=== PATIENT | male | born 1950 | race Caucasian/White ===

== ENCOUNTER 2022-01-02 16:45 | Inpatient (IN) | payer MEDICARE, OTHER ==
[2022-01-02 19:31] LABS: #Basophils 0.1 10x3/uL (0.0-0.2); #Eosinphils 0.2 10x3/uL (0.0-0.5); #Monocytes 0.4 10x3/uL (0.0-1.1); #Neutrophils 3.2 10x3/uL (1.5-8.4); %Basophils 1.1 % (0.0-2.0); %Lymphocytes 26.7 % (18.0-47.0); %Monocytes 8.1 % (0.0-10.0); %Neutrophils 60.9 % (40.0-75.0); Hemoglobin 13.7 g/dL (13.5-17.5); Mean Corpuscular HGB CONC 34.2 g/dL (32.0-36.0); Mean Corpuscular Volume 87.9 fl (81.2-95.1); Mean Platelet Volume 8.3 fl (7.4-10.4); Platelet Count 167 10x3/uL (150-450); RBC Distribution Width 12.9 % (11.5-14.5); Red Blood Cell (RBC) Count 4.56 10x6/uL (4.32-5.72); White Blood Cell (WBC) Count 5.3 10x3/uL (3.5-10.5)
[2022-01-02 19:34] LABS: Bilirubin Neg (Negative); Blood, Urine Negative (Negative); Clarity Clear (Clear); Glucose, Urine (Dipstick) Normal (Negative); Ketone, Urine 5 mg/dL (Negative); Leukocyte 25 (Negative); Nitrite Negative (Negative); Protein, Urine (Dipstick) 30 mg/dl (Neg-Trace); Specific Gravity, Urine 1.025 (1.002-1.036)
[2022-01-02 19:42] LABS: Bacteria/HPF None Seen HPF (None Seen); Mucous/LPF 1+ LPF (<2+); RBC/HPF 0-3 HPF (0-3); Squamous Epithelial 0-3 HPF (0-3)
[2022-01-02 19:45] LABS: ALT (SGPT) Less than 6 U/L (8-55); AST (SGOT) 11 U/L (5-34); Albumin 4.1 g/dL (3.4-4.8); Alkaline Phosphatase 62 U/L (40-110); Anion Gap 12 mmol/L (10-20); BUN (Urea Nitrogen) 18 mg/dL (8.4-25.7); Bilirubin, Total 0.9 mg/dL (0.2-1.2); Calc. Creatinine Clearance 0 mL/min (70-130); Calcium 8.9 mg/dL (7.8-10.44); Carbon Dioxide 28 mmol/L (23-31); Chloride 103 mmol/L (98-107); Globulin 2.1 g/dL (2.4-3.5); Glucose 101 mg/dL (83-110); Potassium 3.3 mmol/L (3.5-5.1); Protein, Total 6.2 g/dL (5.8-8.1); Sodium 140 mmol/L (136-145)
[2022-01-02] MEDS ORDERED: Ondansetron PF 4 MG/2 ML Vial IVP PRN (21:02)
[2022-01-02] MEDS ORDERED: Calcium Carbonate 500 MG ChewTAB PO PRN (21:02)
[2022-01-02] MEDS ORDERED: Senokot S 8.6-50 MG TAB PO PRN (21:02)
[2022-01-02] MEDS ORDERED: Guaifenesin DM 100-10/5 ML UDCUP PO PRN (21:02)
[2022-01-02] MEDS ORDERED: Potassium Chloride 20 MEQ TAB ONE (21:08)
[2022-01-02] MEDS ORDERED: Lactated Ringer's 1,000 ML IV SCH (21:15)
[2022-01-02 22:51] VITALS: BMI 30.7
[2022-01-02] MEDS ORDERED: Tamsulosin HCl 0.4 MG CAP PO SCH (23:00)
[2022-01-02] MEDS ORDERED: Potassium Chloride 20 MEQ TAB PO SCH (23:00)
[2022-01-02] MEDS: cefTRIAXone\\ROCEPHIN 1 GM in Sodium Chloride 0.9% 100 ML IVPB SCH (23:11)
[2022-01-03] MEDS ORDERED: Carbidopa/Levodopa 25-100 mg Tablet PO SCH (01:15)
[2022-01-03] MEDS: Acetaminophen 325 MG TAB PO PRN ×2 (03:38→23:03)
[2022-01-03 05:15] LABS: Anion Gap 14 mmol/L (10-20); BUN (Urea Nitrogen) 13 mg/dL (8.4-25.7); Calc. Creatinine Clearance 106 mL/min (70-130); Carbon Dioxide 28 mmol/L (23-31); Chloride 107 mmol/L (98-107); Glucose 135 mg/dL (83-110); Magnesium 1.7 mg/dL (1.6-2.6); Potassium 3.6 mmol/L (3.5-5.1); Sodium 145 mmol/L (136-145)
[2022-01-03] MEDS: Amlodipine 10 MG TAB PO SCH (08:21)
[2022-01-03] MEDS: Finasteride 5 MG TAB PO SCH (08:21)
[2022-01-03] MEDS: Carbidopa/Levodopa 25-100 mg Tablet PO SCH ×5 (08:21→23:17)
[2022-01-03] MEDS: Cholecalciferol (Vitamin D3) 400 UNITS TAB PO SCH (08:21)
[2022-01-03] MEDS: Amantadine HCl 100 mg Capsule PO SCH (08:21)
[2022-01-03] MEDS: Enoxaparin Sodium 40 MG/0.4 ML SYRINGE SC SCH (08:22)
[2022-01-03] MEDS: Polyethylene Glycol 3350 17 GM Packet PO SCH (08:22)
[2022-01-03] MEDS: Fluticasone Propionate Nasal Spray 16 gm Bottle NASAL SCH (08:22)
[2022-01-03] MEDS: Tamsulosin HCl 0.4 MG CAP PO SCH (20:00)
[2022-01-03] MEDS: Atorvastatin Calcium 20 MG TAB PO SCH (20:01)
[2022-01-03] MEDS: cefTRIAXone\\ROCEPHIN 1 GM in Sodium Chloride 0.9% 100 ML IVPB SCH (22:50)
[2022-01-03 23:03] LABS: SARS-CoV-2 PCR by NAA Not Detected (NotDetected)
[2022-01-03] MEDS: Melatonin 3 MG TAB PO PRN (23:03)
[2022-01-04] MEDS: Carbidopa/Levodopa 25-100 mg Tablet PO SCH ×5 (07:55→23:23)
[2022-01-04] MEDS: Finasteride 5 MG TAB PO SCH (07:55)
[2022-01-04] MEDS: Amantadine HCl 100 mg Capsule PO SCH (07:55)
[2022-01-04] MEDS: Enoxaparin Sodium 40 MG/0.4 ML SYRINGE SC SCH (07:55)
[2022-01-04] MEDS: Cholecalciferol (Vitamin D3) 400 UNITS TAB PO SCH (07:55)
[2022-01-04] MEDS: Fluticasone Propionate Nasal Spray 16 gm Bottle NASAL SCH (07:56)
[2022-01-04] MEDS: Amlodipine 10 MG TAB PO SCH (07:56)
[2022-01-04] MEDS: Polyethylene Glycol 3350 17 GM Packet PO SCH (07:56)
[2022-01-04] MEDS ORDERED: SODIUM CHLORIDE 0.9% IV SCH (10:30)
[2022-01-04] MEDS: Sodium Chloride 0.9% 1,000 ML IV SCH (16:37)
[2022-01-04] MEDS: Atorvastatin Calcium 20 MG TAB PO SCH (20:12)
[2022-01-04] MEDS: Tamsulosin HCl 0.4 MG CAP PO SCH (20:12)
[2022-01-04] MEDS: Acetaminophen 325 MG TAB PO PRN (20:16)
[2022-01-04] MEDS: cefTRIAXone\\ROCEPHIN 1 GM in Sodium Chloride 0.9% 100 ML IVPB SCH (23:23)
[2022-01-04] MEDS: Melatonin 3 MG TAB PO PRN (23:23)
[2022-01-05] MEDS: Sodium Chloride 0.9% 1,000 ML IV SCH ×2 (04:34→18:09)
[2022-01-05] MEDS: Carbidopa/Levodopa 25-100 mg Tablet PO SCH ×4 (08:05→21:05)
[2022-01-05] MEDS: Finasteride 5 MG TAB PO SCH (08:06)
[2022-01-05] MEDS: Cholecalciferol (Vitamin D3) 400 UNITS TAB PO SCH (08:06)
[2022-01-05] MEDS: Polyethylene Glycol 3350 17 GM Packet PO SCH (08:06)
[2022-01-05] MEDS: Enoxaparin Sodium 40 MG/0.4 ML SYRINGE SC SCH (08:06)
[2022-01-05] MEDS: Amlodipine 10 MG TAB PO SCH (08:06)
[2022-01-05] MEDS: Amantadine HCl 100 mg Capsule PO SCH (08:06)
[2022-01-05] MEDS: Fluticasone Propionate Nasal Spray 16 gm Bottle NASAL SCH (08:08)
[2022-01-05 08:16] LABS: #Basophils 0.1 10x3/uL (0.0-0.2); #Eosinphils 0.2 10x3/uL (0.0-0.5); #Monocytes 0.4 10x3/uL (0.0-1.1); #Neutrophils 2.5 10x3/uL (1.5-8.4); %Eosinophils 4.2 % (0.0-6.0); %Lymphocytes 32.7 % (18.0-47.0); %Neutrophils 52.9 % (40.0-75.0); Hemoglobin 13.4 g/dL (13.5-17.5); Mean Corpuscular HGB CONC 33.4 g/dL (32.0-36.0); Mean Corpuscular Hemoglobin 29.6 pg (27.0-33.0); Mean Corpuscular Volume 88.5 fl (81.2-95.1); Mean Platelet Volume 8.5 fl (7.4-10.4); Platelet Count 166 10x3/uL (150-450); RBC Distribution Width 12.7 % (11.5-14.5); Red Blood Cell (RBC) Count 4.53 10x6/uL (4.32-5.72); White Blood Cell (WBC) Count 4.8 10x3/uL (3.5-10.5)
[2022-01-05 08:29] LABS: Anion Gap 13 mmol/L (10-20); BUN (Urea Nitrogen) 11 mg/dL (8.4-25.7); Calc. Creatinine Clearance 120 mL/min (70-130); Calcium 8.9 mg/dL (7.8-10.44); Carbon Dioxide 27 mmol/L (23-31); Chloride 106 mmol/L (98-107); Glucose 97 mg/dL (83-110); Magnesium 1.6 mg/dL (1.6-2.6); Phosphorus 2.7 mg/dL (2.3-4.7); Sodium 143 mmol/L (136-145)
[2022-01-05] MEDS: Potassium Chloride 20 MEQ TAB PO SCH ×2 (12:39→14:18)
[2022-01-05] MEDS: Magnesium 2 GM/50 ML 2 GM in Premix Bag 1 BAG IVPB SCH ×2 (12:40→14:18)
[2022-01-05] MEDS: Atorvastatin Calcium 20 MG TAB PO SCH (21:05)
[2022-01-05] MEDS: Tamsulosin HCl 0.4 MG CAP PO SCH (21:05)
[2022-01-06] MEDS: Carbidopa/Levodopa 25-100 mg Tablet PO SCH ×5 (00:56→22:07)
[2022-01-06] MEDS: Acetaminophen 325 MG TAB PO PRN (01:33)
[2022-01-06 06:37] LABS: #Basophils 0.1 10x3/uL (0.0-0.2); #Eosinphils 0.2 10x3/uL (0.0-0.5); #Monocytes 0.5 10x3/uL (0.0-1.1); #Neutrophils 3.1 10x3/uL (1.5-8.4); %Basophils 1.1 % (0.0-2.0); %Eosinophils 4.1 % (0.0-6.0); %Lymphocytes 30.4 % (18.0-47.0); %Monocytes 8.3 % (0.0-10.0); %Neutrophils 55.7 % (40.0-75.0); Hemoglobin 13.5 g/dL (13.5-17.5); Mean Corpuscular HGB CONC 34.2 g/dL (32.0-36.0); Mean Corpuscular Hemoglobin 29.9 pg (27.0-33.0); Mean Corpuscular Volume 87.4 fl (81.2-95.1); Mean Platelet Volume 8.6 fl (7.4-10.4); Platelet Count 177 10x3/uL (150-450); RBC Distribution Width 12.8 % (11.5-14.5); Red Blood Cell (RBC) Count 4.52 10x6/uL (4.32-5.72); White Blood Cell (WBC) Count 5.6 10x3/uL (3.5-10.5)
[2022-01-06 06:52] LABS: Phosphorus 2.9 mg/dL (2.3-4.7)
[2022-01-06 06:55] LABS: Anion Gap 11 mmol/L (10-20); BUN (Urea Nitrogen) 15 mg/dL (8.4-25.7); Calc. Creatinine Clearance 115 mL/min (70-130); Carbon Dioxide 27 mmol/L (23-31); Chloride 107 mmol/L (98-107); Glucose 102 mg/dL (83-110); Magnesium 2.1 mg/dL (1.6-2.6); Potassium 3.5 mmol/L (3.5-5.1); Sodium 141 mmol/L (136-145)
[2022-01-06] MEDS: Enoxaparin Sodium 40 MG/0.4 ML SYRINGE SC SCH (08:27)
[2022-01-06] MEDS: Polyethylene Glycol 3350 17 GM Packet PO SCH (08:28)
[2022-01-06] MEDS: Fluticasone Propionate Nasal Spray 16 gm Bottle NASAL SCH (08:28)
[2022-01-06] MEDS: Amlodipine 10 MG TAB PO SCH (08:29)
[2022-01-06] MEDS: Cholecalciferol (Vitamin D3) 400 UNITS TAB PO SCH (08:29)
[2022-01-06] MEDS: Finasteride 5 MG TAB PO SCH (08:30)
[2022-01-06] MEDS ORDERED: Lisinopril 10 MG TAB PO SCH (09:00)
[2022-01-06] MEDS: Amantadine HCl 100 mg Capsule PO SCH (09:20)
[2022-01-06] MEDS: Atorvastatin Calcium 20 MG TAB PO SCH (22:07)
[2022-01-06] MEDS: Tamsulosin HCl 0.4 MG CAP PO SCH (22:07)
[2022-01-07] MEDS: Carbidopa/Levodopa 25-100 mg Tablet PO SCH ×6 (00:29→23:46)
[2022-01-07] MEDS: Acetaminophen 325 MG TAB PO PRN ×3 (00:29→20:50)
[2022-01-07 05:27] LABS: Anion Gap 11 mmol/L (10-20); BUN (Urea Nitrogen) 16 mg/dL (8.4-25.7); Calc. Creatinine Clearance 112 mL/min (70-130); Calcium 9.3 mg/dL (7.8-10.44); Carbon Dioxide 27 mmol/L (23-31); Chloride 107 mmol/L (98-107); Glucose 105 mg/dL (83-110); Phosphorus 2.9 mg/dL (2.3-4.7); Potassium 3.4 mmol/L (3.5-5.1); Sodium 142 mmol/L (136-145)
[2022-01-07 05:29] LABS: #Basophils 0.1 10x3/uL (0.0-0.2); #Eosinphils 0.2 10x3/uL (0.0-0.5); #Monocytes 0.5 10x3/uL (0.0-1.1); #Neutrophils 3.4 10x3/uL (1.5-8.4); %Basophils 0.8 % (0.0-2.0); %Eosinophils 3.2 % (0.0-6.0); %Lymphocytes 30.3 % (18.0-47.0); %Monocytes 8.7 % (0.0-10.0); %Neutrophils 56.7 % (40.0-75.0); Hemoglobin 14.2 g/dL (13.5-17.5); Mean Corpuscular HGB CONC 33.6 g/dL (32.0-36.0); Mean Corpuscular Hemoglobin 29.5 pg (27.0-33.0); Mean Corpuscular Volume 87.9 fl (81.2-95.1); Mean Platelet Volume 8.6 fl (7.4-10.4); Platelet Count 178 10x3/uL (150-450); RBC Distribution Width 12.9 % (11.5-14.5); Red Blood Cell (RBC) Count 4.81 10x6/uL (4.32-5.72)
[2022-01-07] MEDS ORDERED: Potassium Chloride 20 MEQ TAB PO SCH (06:00)
[2022-01-07] MEDS: Cyanocobalamin (Vitamin B-12) 1,000 MCG TAB PO SCH (08:50)
[2022-01-07] MEDS: Lisinopril 10 MG TAB PO SCH ×2 (08:50→20:45)
[2022-01-07] MEDS: Amantadine HCl 100 mg Capsule PO SCH (08:50)
[2022-01-07] MEDS: Cholecalciferol (Vitamin D3) 400 UNITS TAB PO SCH (08:51)
[2022-01-07] MEDS: Polyethylene Glycol 3350 17 GM Packet PO SCH (08:51)
[2022-01-07] MEDS: Finasteride 5 MG TAB PO SCH (08:51)
[2022-01-07] MEDS: Amlodipine 10 MG TAB PO SCH (08:51)
[2022-01-07] MEDS: Fluticasone Propionate Nasal Spray 16 gm Bottle NASAL SCH (08:51)
[2022-01-07] MEDS: Enoxaparin Sodium 40 MG/0.4 ML SYRINGE SC SCH (08:52)
[2022-01-07] MEDS: Tamsulosin HCl 0.4 MG CAP PO SCH (20:45)
[2022-01-07] MEDS: Atorvastatin Calcium 20 MG TAB PO SCH (20:45)
[2022-01-08 04:08] LABS: #Basophils 0.1 10x3/uL (0.0-0.2); #Eosinphils 0.2 10x3/uL (0.0-0.5); #Monocytes 0.5 10x3/uL (0.0-1.1); #Neutrophils 3.4 10x3/uL (1.5-8.4); %Basophils 1.2 % (0.0-2.0); %Eosinophils 2.8 % (0.0-6.0); %Lymphocytes 30.6 % (18.0-47.0); %Monocytes 8.8 % (0.0-10.0); %Neutrophils 56.1 % (40.0-75.0); Hemoglobin 13.5 g/dL (13.5-17.5); Mean Corpuscular HGB CONC 34.4 g/dL (32.0-36.0); Mean Corpuscular Hemoglobin 30.3 pg (27.0-33.0); Mean Corpuscular Volume 88.1 fl (81.2-95.1); Mean Platelet Volume 8.6 fl (7.4-10.4); Platelet Count 174 10x3/uL (150-450); Red Blood Cell (RBC) Count 4.45 10x6/uL (4.32-5.72)
[2022-01-08 04:31] LABS: Anion Gap 10 mmol/L (10-20); BUN (Urea Nitrogen) 19 mg/dL (8.4-25.7); Calc. Creatinine Clearance 101 mL/min (70-130); Calcium 9.1 mg/dL (7.8-10.44); Carbon Dioxide 28 mmol/L (23-31); Chloride 107 mmol/L (98-107); Glucose 101 mg/dL (83-110); Magnesium 1.9 mg/dL (1.6-2.6); Phosphorus 3.2 mg/dL (2.3-4.7); Potassium 3.8 mmol/L (3.5-5.1); Sodium 141 mmol/L (136-145)
[2022-01-08] MEDS: Acetaminophen 325 MG TAB PO PRN (06:45)
[2022-01-08] MEDS: Cyanocobalamin (Vitamin B-12) 1,000 MCG TAB PO SCH (08:15)
[2022-01-08] MEDS: Finasteride 5 MG TAB PO SCH (08:15)
[2022-01-08] MEDS: Amlodipine 10 MG TAB PO SCH (08:15)
[2022-01-08] MEDS: Amantadine HCl 100 mg Capsule PO SCH (08:15)
[2022-01-08] MEDS: Carbidopa/Levodopa 25-100 mg Tablet PO SCH ×2 (08:15→12:34)
[2022-01-08] MEDS: Cholecalciferol (Vitamin D3) 400 UNITS TAB PO SCH (08:16)
[2022-01-08] MEDS: Enoxaparin Sodium 40 MG/0.4 ML SYRINGE SC SCH (08:16)
[2022-01-08] MEDS: Polyethylene Glycol 3350 17 GM Packet PO SCH (08:16)
[2022-01-08] MEDS: Lisinopril 10 MG TAB PO SCH (08:16)
[2022-01-08 11:56] VITALS: TEMP 97
[2022-01-08] MEDS: Fluticasone Propionate Nasal Spray 16 gm Bottle NASAL SCH (12:00)
[2022-01-08 12:03] VITALS: BP 159/69
== END 2022-01-08 17:09 | disposition home or self-care (01) | DRG 57 ==
LOC: CSHERS 16:45 → CSHTELE 22:50 → OBSVTOIN 01-04 13:44
PROVIDERS: ADMIT Student in an Organized Health Care Education/Training Program; ATTEND Family Medicine
DX: G90.3 Multi-system degeneration of the autonomic nervous system (principal); I50.32 Chronic diastolic (congestive) heart failure; N39.0 Urinary tract infection, site not specified; G20 Parkinson's disease; E78.2 Mixed hyperlipidemia; N40.0 Benign prostatic hyperplasia without lower urinary tract symptoms; Z20.822 Contact with and (suspected) exposure to COVID-19; E87.6 Hypokalemia; E86.0 Dehydration; I11.0 Hypertensive heart disease with heart failure; N40.1 Benign prostatic hyperplasia with lower urinary tract symptoms; R35.0 Frequency of micturition; E53.8 Deficiency of other specified B group vitamins; Z98.890 Other specified postprocedural states
CPT/HCPCS: 36415; 70544; 71045; 80048; 80053; 81003; 81015; 82607; 82746; 83735; 84100; 84443; 84484; 85025; 87086; 93005; 93306; J0696; J1650; J3475; J3490; J7050; J7120; U0003; U0005